=== PATIENT | male | born 1945 | race Caucasian/White ===

== ENCOUNTER → 2016-12-23 | Outpatient (CLI) | payer MEDICARE, OTHER ==
[~2016-12-23] MED LIST: AMLO10TA2 PO; ASPI-496 PO; BISO5TAB11 PO; HYDR12.58 PO; LISI40TA PO; OMEG1CAP2 PO; RIVA15TA PO; UBID50TA3 PO
== END | disposition home or self-care (01) ==
LOC: CFH 11:50
PROVIDERS: ATTEND Nurse Practitioner Family
DX: R51 Headache (principal)
CPT/HCPCS: 70486

== ENCOUNTER 2018-05-02 10:40 | Day surgery (SDC) | payer MEDICARE, OTHER ==
[~2018-05-02] VITALS: Ht 172.7 cm; Wt 72.7 kg
[~2018-05-02 10:40] MED LIST changes: -AMLO10TA2 PO; +AMLO10TA6 PO
[2018-05-02] MEDS ORDERED: LIDOCAINE-MPF 2%, 2ML ONE (11:07)
== END 2018-05-02 12:42 | disposition home or self-care (01) ==
LOC: CACL 10:40
PROVIDERS: ATTEND Internal Medicine Cardiovascular Disease
DX: I48.91 Unspecified atrial fibrillation (principal); R00.2 Palpitations; I10 Essential (primary) hypertension; I37.1 Nonrheumatic pulmonary valve insufficiency; K57.30 Diverticulosis of large intestine without perforation or abscess without bleeding; E78.5 Hyperlipidemia, unspecified; Z79.82 Long term (current) use of aspirin; Z79.899 Other long term (current) drug therapy; Z85.828 Personal history of other malignant neoplasm of skin; Z98.890 Other specified postprocedural states
CPT/HCPCS: 33282; C1764; J3490

== ENCOUNTER 2019-08-01 12:56 | Emergency (ER) | payer MEDICARE, OTHER ==
[~2019-08-01] VITALS: Ht 170.2 cm; Wt 87.8 kg
[~2019-08-01 12:56] MED LIST changes: -AMLO10TA6 PO; +AMLO10TA8 PO; -HYDR12.58 PO; +HYDROCHLOROTH12.5 MG PO
--- NOTE | 2019-08-01 13:19 | NUR ---
PT C/O IRREGULAR HEARTBEAT FOR 24HR, WHICH STARTED WHEN HE WAS [place] SK[place]. HX A-FIB. TAKING XARELTO PRESCRIBED. CONNECTED TO MONITORING. FAMILY AT BEDSIDE. MD AT BEDSIDE AWAITING ORDERS AT THIS TIME.
[2019-08-01] MEDS ORDERED: DILTIAZEM 5 MG/ML, 5ML IVPush STA (13:21)
[2019-08-01] MEDS ORDERED: DILTIAZEM 5 MG/ML, 5ML ONE (13:30)
[2019-08-01] MEDS ORDERED: SODIUM CHLORIDE FLUSH 10ML SYR IVF ONE (13:30)
[2019-08-01] MEDS ORDERED: SODIUM CHLORIDE 0.9% 1,000ML IVBOLUS ONE (13:30)
--- NOTE | 2019-08-01 13:36 | NUR ---
IV START. LABS DRAWN AND PICKED UP BY LAB. MEDS ADMIN PER NOV. XRAY DONE
[2019-08-01 13:39] LABS: BASOPHILS # (AUTO) 0.02 x10^3/uL (0-0.1); BASOPHILS % (AUTO) 0 % (0-1); EOSINOPHILS # (AUTO) 0.05 x10^3/uL (0-0.4); EOSINOPHILS % (AUTO) 1 % (1-7); LYMPHOCYTES # (AUTO) 1.78 x10^3/uL (1-3.4); LYMPHOCYTES % (AUTO) 25 % (22-44); MD NO; MEAN CORPUSCULAR HGB CONC 33.5 g/dL (33.2-36.2); MEAN CORPUSCULAR VOLUME 89.7 fL (81-97); MEAN PLATELET VOLUME 7.2 fL (7.4-10.4); MONOCYTES # (AUTO) 0.41 x10^3/uL (0.2-0.8); MONOCYTES % (AUTO) 6 % (2-9); NEUTROPHILS # (AUTO) 4.99 x10^3/uL (1.8-6.8); NEUTROPHILS % (AUTO) 69 % (42-75); PLATELET COUNT 233 x10^3/uL (130-400); RED BLOOD COUNT 4.83 x10^6/uL (4.38-5.82); RED CELL DISTRIBUTION WIDTH 13.5 % (9.4-14.8)
[2019-08-01 13:51] LABS: ALANINE AMINOTRANSFERASE 32 U/L (12-78); ALBUMIN 3.4 g/dL (3.4-5.0); ANION GAP 8 mmol/L (5-15); CALCIUM 8.5 mg/dL (8.5-10.1); CHLORIDE 112 mmol/L (98-107); CREATININE 0.98 mg/dL (0.7-1.3)
[2019-08-01 13:55] LABS: ALKALINE PHOSPHATASE 58 U/L (45-117); BILIRUBIN,TOTAL 0.5 mg/dL (0.2-1.0); TOTAL PROTEIN 6.8 g/dL (6.4-8.2); TROPONIN I < 0.015 ng/mL (0.000-0.045)
[2019-08-01 13:57] LABS: INTERNATIONAL NORMALIZED RATIO 1.15 (0.93-1.1)
--- NOTE | 2019-08-01 14:00 | NUR ---
PT HR NOW IN 60'S, WHICH IS PT BASELINE. PT STATES HE FEEL BETTER. SPOUSE AT BEDSIDE.
--- NOTE | 2019-08-01 14:04 | NUR ---
ALL RESULTS ARE BACK AT THIS TIME. CHART UP FOR RECHECK.
--- NOTE | 2019-08-01 14:05 | NUR ---
MD AT BEDSIDE TO UPDATE PT ON POC. MD TO CONSULT CARDIOLOGY.
--- NOTE | 2019-08-01 14:35 | NUR ---
PT AMBULATED WITH STEADY GAIT AROUND ED. DENIES SOB, CP, DIZZY.
[2019-08-01 14:42] VITALS: BP 106/71
== END 2019-08-01 15:00 | disposition home or self-care (01) ==
LOC: ED 14:16
DX: I48.0 Paroxysmal atrial fibrillation (principal); R06.00 Dyspnea, unspecified; R00.0 Tachycardia, unspecified; I10 Essential (primary) hypertension
CPT/HCPCS: 36415; 71045; 80053; 83880; 84484; 85025; 85610; 93005; 96374; 99284; J7030; 99291

== ENCOUNTER → 2019-11-04 | Outpatient (CLI) | payer MEDICARE, OTHER | END | disposition home or self-care (01) | LOC: CFH 08:44 | PROVIDERS: ATTEND Internal Medicine Cardiovascular Disease | DX: I08.8 Other rheumatic multiple valve diseases (principal); I11.9 Hypertensive heart disease without heart failure; I48.91 Unspecified atrial fibrillation; E78.5 Hyperlipidemia, unspecified | CPT/HCPCS: 93306 ==

== ENCOUNTER → 2020-02-28 | Outpatient (CLI) | payer MEDICARE, OTHER | END | disposition home or self-care (01) | LOC: CVU 06:44 | PROVIDERS: ATTEND Neurological Surgery | DX: I70.203 Unspecified atherosclerosis of native arteries of extremities, bilateral legs (principal) | CPT/HCPCS: 93922; 93925 ==